=== PATIENT | female | born 1980 | race Caucasian/White ===

== ENCOUNTER 2020-08-06 15:46 | Emergency (ER) | payer OTHER ==
[~2020-08-06] VITALS: Ht 175.3 cm; Wt 99.8 kg
[~2020-08-06 15:46] MED LIST: PRENATAL; PROMETRIUM200 MG
[2020-08-06] MEDS ORDERED: BIRTH CONTROL (15:59)
[2020-08-06] MEDS ORDERED: AMOXICILLIN 50500 MG PO (15:59)
[2020-08-06] MEDS ORDERED: STEROID (15:59)
[2020-08-06 16:21] LABS: ABSOLUTE BASOPHILS 0.2 thou/uL (0.0-0.2); ABSOLUTE EOSINOPHILS 0.1 thou/uL (0.0-0.7); ABSOLUTE LYMPHOCYTES 3.9 thou/uL (0.8-5.3); ABSOLUTE MONOCYTES 1.4 thou/uL (0.0-1.2); ABSOLUTE NEUTROPHILS 13.3 thou/uL (1.6-8.1); BASOPHILS 0.9 %; EOSINOPHILS 0.6 %; HEMATOCRIT 42.4 % (37.0-47.0); HEMOGLOBIN 14.1 gm/dL (12.0-15.0); LYMPHOCYTES 20.9 %; MCH 29.5 pg (26.0-34.0); MCHC 33.2 g/dL (28.0-37.0); MONOCYTES 7.3 %; MPV 7.4 fl. (7.2-11.1); NUCLEATED RBCS 0 /100WBC; PLATELET COUNT* 439 thou/uL (150-400); POLYS 70.3 %; RBC 4.77 mil/uL (4.20-5.00); RDW-CV 13.9 % (10.5-14.5); WBC 18.9 thou/uL (4.0-11.0)
[2020-08-06 16:33] LABS: CALCIUM 8.8 mg/dL (8.5-10.1); CREATININE 0.9 mg/dL (0.6-1.3); POTASSIUM 3.9 mmol/L (3.5-5.1)
[2020-08-06 16:36] LABS: APTT 24.8 Seconds (25.0-31.3); PROTIME 10.7 Seconds (9.20-11.50)
[2020-08-06 16:44] LABS: ALBUMIN 3.9 g/dL (3.4-5.0); TOTAL BILIRUBIN 0.4 mg/dL (<0.1-1.0); TOTAL PROTEIN 7.6 g/dL (6.4-8.2)
[2020-08-06] MEDS ORDERED: HYDROCODON-ACE1 EAC7 PO (17:13)
[2020-08-06] MEDS ORDERED: ZOFRAN ODT4 MG SUBLING (17:13)
[2020-08-06 18:22] VITALS: BP 104/68
== END 2020-08-06 18:23 | disposition home or self-care (01) ==
LOC: M.ERS 15:46
PROVIDERS: Family Medicine
DX: U07.1 COVID-19 (principal); Z88.2 Allergy status to sulfonamides; Z90.49 Acquired absence of other specified parts of digestive tract